=== PATIENT | female | born 1995 | race Caucasian/White ===

== ENCOUNTER 2017-10-15 11:28 | Emergency (ER) | payer OTHER ==
[~2017-10-15] VITALS: Ht 165.1 cm; Wt 54.4 kg
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
[2017-10-15] MEDS ORDERED: HYDROcodone/APAP 5 MG/325 MG (LORTAB) TAB PO STA (12:48)
--- NOTE | 2017-10-15 13:06 | Diagnostic Imaging Report ---
INDICATION: Injury. Pain. COMPARISON: None FINDINGS: Three views of the right ankle are obtained. No acute fracture, malalignment or osseous destructive process is demonstrated. There is soft tissue irregularity along the lateral distal leg consistent with laceration. No radiopaque foreign bodies are suspected. IMPRESSION: No acute osseous abnormality or radiopaque foreign bodies are demonstrated. Dictated by: Dictated on workstation # [id number]
[2017-10-15] MEDS ORDERED: SULF1TAB35 PO (13:45)
[2017-10-15] MEDS ORDERED: MUPI15CR TP (13:51)
[2017-10-15 14:12] VITALS: BP 101/85
== END 2017-10-15 14:13 | disposition home or self-care (01) ==
LOC: ER 11:32
DX: S91.011A Laceration without foreign body, right ankle, initial encounter (principal); W25.XXXA Contact with sharp glass, initial encounter
CPT/HCPCS: 73610